=== PATIENT | female | born 1965 | race Caucasian/White ===

== ENCOUNTER 2024-02-23 18:02 | Emergency (ER) | payer BC | END 2024-02-23 19:27 | disposition home or self-care (01) | LOC: MW.ED 18:02 | DX: S62.612A Displaced fracture of proximal phalanx of right middle finger, initial encounter for closed fracture (principal); Z75.8 Other problems related to medical facilities and other health care; W23.0XXA Caught, crushed, jammed, or pinched between moving objects, initial encounter; Y93.16 Activity, rowing, canoeing, kayaking, rafting and tubing; Y92.838 Other recreation area as the place of occurrence of the external cause | CPT/HCPCS: 29125; 73130-26-RT; 73130-RT; 99283; 99283-25 ==